=== PATIENT | male | born 1940 | race Caucasian/White ===

== ENCOUNTER 2020-01-17 08:44 | Outpatient (CLI) | payer MEDICARE, SELFPAY ==
--- NOTE | 2020-01-17 08:51 | ECG_ITS ---
Measurements Intervals [place] Rate: 57 P: 44 IA: 171 QRS: 48 QRSD: 80 T: 32 QT: 401 QTc: 392 Interpretive Statements SINUS BRADYCARDIA DELAYED PRECORDIAL R/S TRANSITION ST ELEVATION IN ANTEROLAT/INF LEADS- PROBABLY EARLY REPOLARIZATION BASELINE ARTIFACT- I, II, III, AVR, AVL, AVF BORDERLINE ECG Electronically Signed On 01-17-2020 9:05:23 CDT by Natalio Vaughan D.O.
[2020-01-17 09:19] LABS: Anion Gap 9 mmol/L (8-16); Blood Urea Nitrogen 19 mg/dL (9-20); Calcium 9.5 mg/dL (8.4-10.2); Carbon Dioxide 32 mmol/L (22-30); Chloride 98 mmol/L (98-107); Estimated Glomerular Filt Rate > 60; Glucose 153 mg/dL (75-110); Potassium 4.1 mmol/L (3.4-5.0); Sodium 139 mmol/L (137-145)
== END 2020-01-17 08:45 | disposition home or self-care (01) ==
LOC: ANHSURGERY 08:51
PROVIDERS: Anesthesiology; PCP Internal Medicine; Visit Provider Urology
DX: Z01.810 Encounter for preprocedural cardiovascular examination (principal); Z01.812 Encounter for preprocedural laboratory examination; I10 Essential (primary) hypertension; E11.9 Type 2 diabetes mellitus without complications
CPT/HCPCS: 36415; 80048; 93005

== ENCOUNTER 2020-01-22 00:46 | Outpatient (CLI) | payer MEDICARE, SELFPAY ==
[2020-01-22 17:37] LABS: SARS-CoV-2 RNA PCR Negative
== END 2020-01-22 00:47 | disposition home or self-care (01) ==
LOC: ANHCOVIDDT 00:46
PROVIDERS: Urology; Visit Provider Internal Medicine Cardiovascular Disease
DX: Z01.812 Encounter for preprocedural laboratory examination (principal); Z20.828 Contact with and (suspected) exposure to other viral communicable diseases
CPT/HCPCS: 87635; C9803; U0003

== ENCOUNTER 2020-01-25 00:41 | Day surgery (SDC) | payer MEDICARE, SELFPAY ==
[2020-01-12 13:28] VITALS: BMI 22.1
[2020-01-25 09:48] VITALS: BP 133/59; PULSE 61; RESP 20; TEMP 36.7; O2SAT 100
[2020-01-25] MEDS: LACTATED RINGERS 1,000 ML 30 ML IV CONT (10:15)
[2020-01-25 10:30] LABS: Glucose Point of Care 193 (65-105)
--- NOTE | 2020-01-25 10:35 | P.PNAN_ITS ---
Anes - Initial Pre Proc Eval Procedure: Operation Date: 01/25/20 11:30 Proposed Procedures p Circumcision - Salvador Tarango MD Date/Time: 01/25/20 10:35 Surgeon: Salvador Tarango MD Pre Op Diagnosis: Phimosis Patient Data Age: 79 Gender: M Height: 5 ft 8 in Weight: 65.5 kg Last Vital Signs Temp 98.0 F 01/25/20 09:48 Pulse 61 01/25/20 09:48 Resp 20 01/25/20 09:48 BP 133/59 L 01/25/20 09:48 Pulse Ox 100 01/25/20 09:48 Allergies Allergy/AdvReac Type Severity Reaction Status Date / Time No Known Allergies Allergy Unverified 01/25/20 09:58 Home Medications Medication Instructions Recorded Confirmed Type aspirin 81 mg PO DAILY 01/12/20 01/25/20 History atorvastatin 80 mg PO HS 01/12/20 01/25/20 History cholecalciferol (vitamin D3) 1,250 mcg PO WEEKLY 01/12/20 01/25/20 History cyanocobalamin (vitamin B-12) 1,000 mcg PO DAILY 01/12/20 01/25/20 History [Vitamin B-12] empagliflozin [Jardiance] 25 mg PO QAM 01/12/20 01/25/20 History enalapril maleate 5 mg PO QAM 01/12/20 01/25/20 History glipizide 5 mg PO QAM 01/12/20 01/25/20 History umwmziin-cymjj-tcn4-C-lakeisha-bor 1 tablet PO DAILY 01/12/20 01/25/20 History [Frziyesx-Peanp-GXZ(with boron)] isosorbide mononitrate 30 mg PO QAM 01/12/20 01/25/20 History metformin 1,000 mg PO QAM 01/12/20 01/25/20 History metformin 500 mg PO QPM 01/12/20 01/25/20 History multivitamin [Multiple Vitamins] 1 tablet PO DAILY 01/12/20 01/25/20 History oxybutynin chloride 15 mg PO HS 01/12/20 01/25/20 History vit A,C and X-avcvfa-yhepfwpm 1 tablet PO DAILY 01/12/20 01/25/20 History [Vision Formula (with lutein)] Laboratory Tests 01/25/20 10:23 POC Capillary Glucose 193 mg/dl H mg/dl (65-105) Patient hx anesthesia problems: none Family hx anesthesia problems: none PMFSH Past Medical History Medical History (Updated 01/25/20 @ 10:43 by Alin Can MD) CAD (coronary artery disease) H/O prostate cancer Hyperlipidemia Hypertension Surgical History Surgical History (Updated 01/25/20 @ 10:43 by Alin Can MD) S/P CABG x 5 Stented coronary artery Social History Social History Smoking status: Never smoker Alcohol intake: former Alcohol use details: SOCIAL DRINKER IN PAST Substance use: never Living arrangements: with family Spiritual care concerns: No Anes - Eval Final PreProcedure Day of Procedure 01/25/20 10:35 Patient weight: normal Heart: regular rate and rhythm Lungs: clear to auscultation Airway: Mallampati scale class II Neurological: alert and oriented Last oral intake: >/= 8 hours ASA classification: IV Emergent: no Anesthetic plan: proceed Anesthesia type and monitoring: general LMA and standard monitoring Informed Consent: The patient's anesthetic plan and its attendant risks and be nefits were discussed with the patient/family/POA. Questions were solicited and answers provided to the satisfaction of the patient/family/POA.
--- NOTE | 2020-01-25 12:00 | WPDHPUPDATE1 ---
History and Physical Update Update Date/Time: 01/25/20 12:00 History and Physical has been reviewed, including an updated exam of the patient. There are NO changes in the patient's condition. Risks, benefits, and alternatives have been discussed and questions answered. Patient agrees to proceed with procedure. Proceed with circumcision
[2020-01-25] MEDS: ceFAZolin 2 GM/D5W 50 ML 2 GM/50 ML BAG IVPB (12:31)
--- NOTE | 2020-01-25 12:32 | SUR.PREOP ---
1135 update provided r/t delay w/surgeon/acknowledges understanding.
[2020-01-25] MEDS: NEOMYCIN/POLYMYXIN/BACITRACIN OINTMENT 15 GM TUBE 1 APPLIC TOPICAL (13:06)
--- NOTE | 2020-01-25 13:13 | P.OP_ITS ---
Procedure Note - Detailed Date of procedure: 01/25/20 Pre-op diagnosis: Phimosis Post-op diagnosis: same Procedure performed: Circumcision Description of procedure: The patient is brought to the operative suite areas prepped and draped in a routine sterile fashion while in a supine position. The lines of circumcision are outlined using a sterile marking pen. 2 circumferential circumcising incisions were made and carried down to [facility]'s f ascia. The penile foreskin is circumferentially excised. Hemostasis is obtained with electric cautery. The edges of the penile skin reapproximated using a combination of running and interrupted 4-0 chromic. A penile block is administered at the base of the penis with 0.25% bupivacaine. The patient was taken to the recovery room in good condition. EBL was approximately 10cc. Anesthesia: GLMA Surgeon: Salvador Tarango MD Drains: No Packing: No Pathology: yes Complications: No immediate complications Condition: stable Disposition: PACU
[2020-01-25 13:20] VITALS: BP 116/63; PULSE 54; RESP 20; TEMP 36.2; O2SAT 100
[2020-01-25 13:35] VITALS: BP 131/63; PULSE 53; RESP 12; O2SAT 100
[2020-01-25 13:35] LABS: Glucose Point of Care 140 (65-105)
[2020-01-25 13:50] VITALS: BP 124/58; PULSE 54; RESP 10; O2SAT 99
[2020-01-25 13:56] VITALS: BP 144/56; PULSE 55; RESP 16
[2020-01-25 14:25] VITALS: BP 136/54; PULSE 51; RESP 16
== END 2020-01-25 14:53 | disposition home or self-care (01) ==
PROVIDERS: Visit Provider Urology
PROC: (CPT 54161; principal; 2020-01-25 11:30)
DX: N47.1 Phimosis (principal); I25.10 Atherosclerotic heart disease of native coronary artery without angina pectoris; I10 Essential (primary) hypertension; E78.5 Hyperlipidemia, unspecified; E11.9 Type 2 diabetes mellitus without complications; Z95.5 Presence of coronary angioplasty implant and graft; Z95.1 Presence of aortocoronary bypass graft; Z79.82 Long term (current) use of aspirin; Z79.84 Long term (current) use of oral hypoglycemic drugs; Z85.46 Personal history of malignant neoplasm of prostate
CPT/HCPCS: 54161; 88304; A9270; J0690; J1100; J2405; J2704; J3010; J7120

== ENCOUNTER 2021-08-21 13:32 | Emergency (ER) | payer MEDICARE, SELFPAY ==
--- NOTE | 2021-08-21 13:34 | ED.WOUNDLAC ---
HPI - Wound/Laceration General Chief Complaint: Wound/Laceration Stated Complaint: scalp laceration Time Seen by Provider: 08/21/21 13:34 Source: patient, family and RN notes reviewed History of Present Illness HPI narrative: Patient is an 81-year-old male who presents the urgent care with his spouse with complaints of a head wound. Patient states that this morning at approximately 11:30 AM. Patient states that he was on a riding lawnmower and scraped the top of his head on a branch. Patient states he did not realize he did it until his came home and noticed bleeding. Patient is on warfarin. Patient denies any loss of consciousness, dizziness or lightheadedness since the incident. No other acute complaints. No acute distress noted. Patient and spouse aware of the plan of care. Some parts of this dictation were generated by voice recognition software and may contain typographical and/or grammatical inaccuracies. Related Data Home Medications Medication Instructions Recorded Confirmed Jardiance 25 mg PO QAM 01/12/20 01/25/20 Vision Formula (with lutein) 1 tablet PO DAILY 01/12/20 01/25/20 aspirin 81 mg PO DAILY 01/12/20 01/25/20 atorvastatin 80 mg PO HS 01/12/20 01/25/20 cholecalciferol (vitamin D3) 1,250 mcg PO WEEKLY 01/12/20 01/25/20 cyanocobalamin (vitamin B-12) 1,000 mcg PO DAILY 01/12/20 01/25/20 [Vitamin B-12] enalapril maleate 5 mg PO QAM 01/12/20 01/25/20 oypyrkdb-kcbxd-vgk4-C-lakeisha-bor 1 tablet PO DAILY 01/12/20 01/25/20 [Slufxqvf-Utwnp-RYS(with boron)] isosorbide mononitrate 30 mg PO QAM 01/12/20 01/25/20 multivitamin [Multiple Vitamins] 1 tablet PO DAILY 01/12/20 01/25/20 oxybutynin chloride 15 mg PO HS 01/12/20 01/25/20 amiodarone 08/21/21 insulin glargine-lixisenatide SUBCUT 08/21/21 [Soliqua 100/33] warfarin 08/21/21 Allergies Allergy/AdvReac Type Severity Reaction Status Date / Time No Known Allergies Allergy Unverified 01/25/20 09:58 Review of Systems Review of Systems: CONSTITUTIONAL: Denies fever, chills, or sweats. EYES: Denies visual changes, redness, or discharge. ENT: Denies rhinorrhea, congestion, sore throat, or otalgia. CARDIOVASCULAR: Denies chest pain, palpitations, or edema. RESPIRATORY: Denies cough or dyspnea. GASTROINTESTINAL: Denies abdominal pain, nausea, vomiting, or diarrhea. GENITOURINARY: Denies dysuria or hematuria. SKIN: Reports of a laceration to the scalp MUSCULOSKELETAL: Denies back pain, joint pain, or myalgia. NEUROLOGIC: Denies headache, numbness, or weakness. All other systems reviewed are negative, except as documented in HPI. [facility] Past Medical History Medical History (Updated 08/21/21 @ 13:56 by LYNNE Brooks) CAD (coronary artery disease) H/O prostate cancer Hyperlipidemia Hypertension Surgical History Surgical History (Updated 01/25/20 @ 10:43 by Alin Can MD) S/P CABG x 5 Stented coronary artery Social History Social History Smoking status: Never smoker Alcohol intake: former Alcohol use details: SOCIAL DRINKER IN PAST Substance use: never Spiritual care concerns: No Comments At the time of my signature, I reviewed and agree with the nursing past medical, surgical, social, and family history. There is no relevant family history pertinent to the patient complaint. Exam Narrative: GENERAL: This is a well-nourished, well-developed patient, in no apparent distress. HEAD: normocephalic, atraumatic. EYES: PERRL. Sclera clear/white. Vision is grossly intact. EARS: External ears normal NOSE: External nose normal with no obvious nasal discharge, nares without redness, no rhinorrhea. THROAT: Mucous membranes moist NECK: Neck supple CARDIOVASCULAR: Regular rate, bradycardic RESPIRATORY: Clear to auscultation. Breath sounds equal bilaterally. SKIN: Superficial 6 x 3cm skin tear to the mid scalp with notable 1 x 1 cm blood clot/hematoma. Warm, intact with no suspicious lesions or rash, good texture and tu
[2021-08-21 13:36] VITALS: BP 138/58; PULSE 55; RESP 12; TEMP 36.2; O2SAT 98
[2021-08-21 13:45] VITALS: BP 138/58; PULSE 55; RESP 12; TEMP 36.2; O2SAT 98
== END 2021-08-21 13:58 | disposition home or self-care (01) ==
PROVIDERS: Emergency Provider Nurse Practitioner Family
DX: S01.01XA Laceration without foreign body of scalp, initial encounter (principal); W22.8XXA Striking against or struck by other objects, initial encounter; I25.10 Atherosclerotic heart disease of native coronary artery without angina pectoris; E78.5 Hyperlipidemia, unspecified; I10 Essential (primary) hypertension; Z85.46 Personal history of malignant neoplasm of prostate; Z95.5 Presence of coronary angioplasty implant and graft
CPT/HCPCS: 99212; G0463